=== PATIENT | female | born 1970 | race Two or more races ===

== ENCOUNTER 2018-02-15 08:40 | Emergency (ER) | payer MEDICAID, OTHER ==
[~2018-02-15] VITALS: Ht 165.1 cm; Wt 57.0 kg
[2018-02-15] MEDS ORDERED: LIDOCAINE HCL/PF 1% 2ML VIAL INFIL ONE (12:45)
[2018-02-15] MEDS ORDERED: LIDOCAINE HCL/PF 1% 10 MG/ML 5ML VIAL IJ ONE (13:15)
[2018-02-15 13:53] VITALS: BP 122/85
== END 2018-02-15 13:58 | disposition home or self-care (01) ==
LOC: ER 11:03
DX: T16.2XXA Foreign body in left ear, initial encounter (principal); X58.XXXA Exposure to other specified factors, initial encounter; Y93.89 Activity, other specified; Y92.89 Other specified places as the place of occurrence of the external cause; H60.92 Unspecified otitis externa, left ear
CPT/HCPCS: 69200; 99284; J3490

== ENCOUNTER 2020-11-13 21:45 | Emergency (ER) | payer MEDICAID ==
[~2020-11-13] VITALS: Ht 149.9 cm; Wt 66.0 kg
[2020-11-13 21:48] VITALS: BP 123/80
[2020-11-13] MEDS ORDERED: AMOX-424 MT (23:14)
== END 2020-11-13 23:30 | disposition home or self-care (01) ==
LOC: ER 21:45
DX: L03.113 Cellulitis of right upper limb (principal); Z98.890 Other specified postprocedural states
CPT/HCPCS: 99283

== ENCOUNTER 2024-06-01 01:21 | Emergency (ER) | payer MEDICAID ==
[~2024-06-01] VITALS: Ht 154.9 cm; Wt 66.0 kg
[~2024-06-01 01:21] MED LIST: AMOX-424 MT
[2024-06-01 01:56] VITALS: TEMP 98.3; O2SAT 100
[2024-06-01 03:21] VITALS: BP 140/70; PULSE 82; RESP 18
[2024-06-01] MEDS: HYDROCODONE/ACETAMINOPHEN 5/325MG TABLET PO ONE (03:21)
[2024-06-01] MEDS: IBUPROFEN 600MG TABLET PO ONE (03:21)
[2024-06-01] MEDS: LIDOCAINE HCL 1% 20ML VIAL INFIL ONE (03:30)
[2024-06-01] MEDS ORDERED: IBUP-2029 MT (05:15)
[2024-06-01] MEDS ORDERED: HYDR-4001 MT (05:15)
== END 2024-06-01 08:04 | disposition home or self-care (01) ==
LOC: ER 01:21
DX: S63.115A Dislocation of metacarpophalangeal joint of left thumb, initial encounter (principal); Z00.00 Encounter for general adult medical examination without abnormal findings; Y04.0XXA Assault by unarmed brawl or fight, initial encounter; Y93.89 Activity, other specified; Y92.89 Other specified places as the place of occurrence of the external cause; Y99.8 Other external cause status
CPT/HCPCS: 99284; 26700; 73110; 73130; J3490

== ENCOUNTER → 2024-10-05 | Day surgery (SDC) | payer MEDICAID ==
[~2024-10-05] MED LIST changes: +FERR324T4 PO; +HYDR-4001 MT; +IBUP-2029 MT; +LIDOCAINE HCL/PF 1% 10 MG/ML 5ML VIAL ONE; +SODIUM BICARBONATE 4% 2.4MEQ/5ML VIAL IV ONE
== END | disposition home or self-care (01) ==
LOC: RAD 09:20
PROVIDERS: ATTEND Specialist
DX: N60.89 Other benign mammary dysplasias of unspecified breast (principal); Z79.899 Other long term (current) drug therapy; Z98.890 Other specified postprocedural states; Z83.3 Family history of diabetes mellitus
CPT/HCPCS: 19281; J2003; J3490; A4648

== ENCOUNTER → 2024-10-10 | Day surgery (SDC) | payer MEDICAID ==
[~2024-10-10] VITALS: Ht 152.4 cm; Wt 62.6 kg
[~2024-10-10] MED LIST changes: +ACETAMINOPHEN 1000MG/100ML 100 ML IV ONE; -AMOX-424 MT; +BUPIVACAINE HCL/PF 0.5% (5MG/ML) 10ML ONE; +DEXAMETHASONE 4MG/ML 1ML VIAL ONE; +FENTANYL CITRATE/PF 50MCG/ML 2ML VIAL IV PRN; +FENTANYL CITRATE/PF 50MCG/ML 2ML VIAL ONE; -HYDR-4001 MT; +HYDROMORPHONE HCL/PF 1MG/ML INJ IV PRN; -IBUP-2029 MT; +LACTATED RINGERS 1,000 ML IV SCH; +LIDOCAINE HCL 1% 10 MG/ML 10ML VIAL ONE; -LIDOCAINE HCL/PF 1% 10 MG/ML 5ML VIAL ONE; +ONDANSETRON HCL 4MG/2ML INJ IV PRN; +ONDANSETRON HCL 4MG/2ML INJ ONE; +PROPOFOL 200MG/20ML VIAL IV ONE; +SKIN ADHESIVE 0.7 GM EA TOP ONE; -SODIUM BICARBONATE 4% 2.4MEQ/5ML VIAL IV ONE
[2024-10-10 06:54] LABS: BASOPHILS % 1.3 % (0.0-2.0); EOSINOPHILS % 3.8 % (0.0-5.0); HEMATOCRIT. 36.3 % (36.0-48.0); LYMPHOCYTES % 38.7 % (20.0-50.0); MEAN CORPUSCULAR HEMOGLOBIN 27.5 pg (28.0-32.0); MEAN CORPUSCULAR HGB CONC 33.1 g/dL (31.0-37.0); MEAN CORPUSCULAR VOLUME 83.2 fL (81.0-99.0); MEAN PLATELET VOLUME 7.8 fl (7.4-10.4); NEUTROPHILS % 44.2 % (40.0-76.0); PLATELET 314 x1000/uL (130-400); RED BLOOD CELL COUNT 4.37 mill/uL (4.2-5.4); RED CELL DISTRIBUTION WIDTH 21.4 % (11.6-14.6)
[2024-10-10 06:55] LABS: CLARITY URINE CLEAR (CLEAR); COLOR URINE YELLOW (YELLOW); GLUCOSE URINE NEGATIVE (NEGATIVE); KETONES URINE NEGATIVE (NEGATIVE); LEUKOCYTE ESTERASE URINE TRACE (NEGATIVE); NITRITE URINE NEGATIVE (NEGATIVE); OCCULT BLOOD URINE NEGATIVE (NEGATIVE); PH URINE 5.5 (4.5-8.0); PROTEIN URINE NEGATIVE (NEGATIVE); SPECIFIC GRAVITY URINE 1.012 (1.005-1.030); UROBILINOGEN URINE 0.2 E.U./dL (0.2-1.0)
[2024-10-10 06:59] LABS: INR 0.9; PARTIAL THROMBOPLASTIN TIME 24.7 sec (23.4-31.0); PROTHROMBIN TIME 9.8 sec (9.6-11.0)
[2024-10-10 07:01] LABS: CHLORIDE 104 mEq/L (98-107); POTASSIUM 4.1 mEq/L (3.5-5.1); SODIUM 139 mEq/L (136-145)
[2024-10-10 07:02] LABS: CALCIUM 9.3 mg/dL (8.7-10.4); CARBON DIOXIDE 26 mEq/L (21-32)
[2024-10-10 07:07] LABS: CREATININE 0.6 mg/dL (0.6-1.0); GLUCOSE 115 mg/dL (70-105); UREA NITROGEN BLOOD 16 mg/dL (9-23)
[2024-10-10 07:09] LABS: ALANINE AMINOTRANSFERASE 42 IU/L (10-49); ALBUMIN 4.3 g/dL (3.2-4.8); ASPARTATE AMINOTRANSFERASE 48 IU/L (<34); BILIRUBIN TOTAL 0.3 mg/dL (0.1-1.0)
[2024-10-10 07:10] LABS: PROTEIN TOTAL 7.5 g/dL (6.0-8.3); SQUAMOUS EPITHELIAL CELL URINE FEW /lpf (RARE/1+)
[2024-10-10 07:12] LABS: WBC URINE 0-2 /hpf (0-2)
[2024-10-10 07:13] LABS: BACTERIA URINE NONE SEEN; RBC URINE 0-2 /hpf (0-2)
[2024-10-10 07:15] LABS: UCG SCREEN NEGATIVE
== END | disposition home or self-care (01) ==
LOC: OR 05:59
PROVIDERS: ATTEND Specialist
DX: N62 Hypertrophy of breast (principal); R92.8 Other abnormal and inconclusive findings on diagnostic imaging of breast; F41.9 Anxiety disorder, unspecified; Z86.2 Personal history of diseases of the blood and blood-forming organs and certain disorders involving the immune mechanism; Z79.899 Other long term (current) drug therapy; Z98.890 Other specified postprocedural states; Z86.718 Personal history of other venous thrombosis and embolism
CPT/HCPCS: 19081; 80053; 81003; 81025; 85025; 85610; 85730; 36415; 88305; J3010; J0665; J1100; J2003; J2405; J2704; 76098; J0131

== ENCOUNTER 2025-03-01 14:30 | Emergency (ER) | payer MEDICAID ==
[~2025-03-01] VITALS: Ht 152.4 cm; Wt 68.0 kg
[~2025-03-01 14:30] MED LIST changes: -ACETAMINOPHEN 1000MG/100ML 100 ML IV ONE; -BUPIVACAINE HCL/PF 0.5% (5MG/ML) 10ML ONE; -DEXAMETHASONE 4MG/ML 1ML VIAL ONE; -FENTANYL CITRATE/PF 50MCG/ML 2ML VIAL IV PRN; -FENTANYL CITRATE/PF 50MCG/ML 2ML VIAL ONE; -HYDROMORPHONE HCL/PF 1MG/ML INJ IV PRN; -LACTATED RINGERS 1,000 ML IV SCH; -LIDOCAINE HCL 1% 10 MG/ML 10ML VIAL ONE; -ONDANSETRON HCL 4MG/2ML INJ IV PRN; -ONDANSETRON HCL 4MG/2ML INJ ONE; -PROPOFOL 200MG/20ML VIAL IV ONE; -SKIN ADHESIVE 0.7 GM EA TOP ONE
[2025-03-01 14:36] VITALS: TEMP 36.8; O2SAT 99
[2025-03-01] MEDS ORDERED: AMOX1TAB16 MT (16:27)
[2025-03-01] MEDS ORDERED: BO1 TP (16:27)
[2025-03-01] MEDS: BACITRACIN ZINC OINT UDPKT TOP ONE (16:35)
[2025-03-01] MEDS: TETANUS, DIPHTHERIA, PERTUSSIS VAC/PF 0.5ML (>10YR OLD) IM ONE (16:37)
[2025-03-01 16:59] VITALS: BP 128/72; PULSE 88; RESP 16; O2SAT 100
== END 2025-03-01 17:00 | disposition home or self-care (01) ==
LOC: ER 14:30
DX: S61.551A Open bite of right wrist, initial encounter (principal); Z98.890 Other specified postprocedural states; Z79.899 Other long term (current) drug therapy; W55.01XA Bitten by cat, initial encounter; Y93.89 Activity, other specified; Y92.89 Other specified places as the place of occurrence of the external cause; Y99.8 Other external cause status
CPT/HCPCS: 73110; 90471; 90715; 99283